=== PATIENT | male | born 1990 | race Native Hawaiian/Other Pacific Islander ===

== ENCOUNTER 2022-11-06 19:52 | Emergency (ER) | payer OTHER ==
[~2022-11-06] VITALS: Ht 175.3 cm; Wt 80.0 kg
[2022-11-06] MEDS ORDERED: CEPHALEXIN500 M1 PO (21:48)
[2022-11-06 22:13] VITALS: BP 125/52
== END 2022-11-06 22:14 | disposition home or self-care (01) ==
LOC: ED 19:52
DX: S01.511A Laceration without foreign body of lip, initial encounter (principal); S61.411A Laceration without foreign body of right hand, initial encounter; Y04.0XXA Assault by unarmed brawl or fight, initial encounter; Z88.8 Allergy status to other drugs, medicaments and biological substances
CPT/HCPCS: 73130; A9270

== ENCOUNTER 2023-03-18 13:17 | Emergency (ER) | payer OTHER ==
[~2023-03-18] VITALS: Ht 175.3 cm; Wt 80.5 kg
[~2023-03-18 13:17] MED LIST: CEPHALEXIN500 M1 PO
[2023-03-18] MEDS ORDERED: OMEPRAZOLE40 MG PO (13:28)
[2023-03-18 15:11] VITALS: BP 113/72
== END 2023-03-18 15:12 | disposition home or self-care (01) ==
LOC: ED 13:17
DX: T78.40XA Allergy, unspecified, initial encounter (principal); Z88.8 Allergy status to other drugs, medicaments and biological substances; Z79.899 Other long term (current) drug therapy
CPT/HCPCS: 99282; J1100; Q0163

== ENCOUNTER 2024-05-09 06:38 | Emergency (ER) | payer OTHER ==
[~2024-05-09] VITALS: Ht 170.2 cm; Wt 80.0 kg
[~2024-05-09 06:38] MED LIST changes: +OMEPRAZOLE40 MG PO; +PREDNISONE20 MG PO
[2024-05-09] MEDS ORDERED: KETOROLAC TROMETHAMINE 30 MG/ML VIAL IV ONE (07:00)
[2024-05-09 07:13] LABS: BASOPHILS 0.2 % (0-2); EOSINOPHILS 2.1 % (0-6); HEMATOCRIT 42.4 % (35.0-50.0); HEMOGLOBIN 14.7 g/dL (12.0-18.0); LYMPHOCYTES 16.9 % (24-44); MCH 31.6 (27-36); MCHC 34.7 g/dl (30-36); MCV 90.9 fl (81-99); MONOCYTES 10.9 % (0-12); NEUTROPHILS 69.9 % (39-80); PLATELET COUNT 191 K/uL (140-440); RBC 4.67 M/ul (4.3-5.7); RDW 13.8 (10.5-15.0)
[2024-05-09 08:20] VITALS: BP 116/68
== END 2024-05-09 08:20 | disposition home or self-care (01) ==
LOC: ED 06:38
PROVIDERS: Family Medicine
DX: R07.89 Other chest pain (principal); Z88.8 Allergy status to other drugs, medicaments and biological substances; Z79.899 Other long term (current) drug therapy; V29.91XA Electric (assisted) bicycle rider (driver) (passenger) injured in unspecified traffic accident, initial encounter
CPT/HCPCS: 36415; 71250; 85025; 99284-25